=== PATIENT | male | born 1985 | race Caucasian/White ===

== ENCOUNTER 2023-04-22 19:08 | Emergency (ER) | payer BC ==
[~2023-04-22] VITALS: Ht 165.1 cm; Wt 102.0 kg
[2023-04-22 19:12] VITALS: BP 136/101; RESP 16; TEMP 98.9; O2SAT 97
[2023-04-22 19:13] VITALS: PULSE 104
[2023-04-22 20:22] LABS: HEMATOCRIT. 43.9 % (42.0-52.0); HEMOGLOBIN. 15.1 g/dL (14.0-18.0); MEAN CORPUSCULAR HEMOGLOBIN 31.1 pg (28.0-32.0); MEAN CORPUSCULAR HGB CONC 34.4 g/dL (31.0-37.0); MEAN CORPUSCULAR VOLUME 90.3 fL (80.0-94.0); MEAN PLATELET VOLUME 8.1 fl (7.4-10.4); PLATELET 174 x1000/uL (130-400); RED BLOOD CELL COUNT 4.86 mill/uL (4.7-6.1); RED CELL DISTRIBUTION WIDTH 13.6 % (11.6-14.6); WHITE BLOOD COUNT 10.3 x1000/uL (4.5-11.0)
[2023-04-22 20:23] LABS: DIFFERENTIAL COMMENT 1
[2023-04-22 20:36] LABS: PLATELET ESTIMATE NORMAL
[2023-04-22 20:45] LABS: CHLORIDE 100 mEq/L (98-107); INDEX HEMOLYSI 1 (1-3); INDEX ICTERIC 1 (1-4); INDEX LIPEMIC 1 (1-3); POTASSIUM 3.2 mEq/L (3.5-5.1); SODIUM 135 mEq/L (136-145)
[2023-04-22 20:47] LABS: CLARITY URINE CLEAR (CLEAR); COLOR URINE DARK YELLOW (YELLOW); GLUCOSE URINE NEGATIVE (NEGATIVE); KETONES URINE 1+ (NEGATIVE); LEUKOCYTE ESTERASE URINE TRACE (NEGATIVE); NITRITE URINE NEGATIVE (NEGATIVE); OCCULT BLOOD URINE 2+ (NEGATIVE); PROTEIN URINE 3+ (NEGATIVE); SPECIFIC GRAVITY URINE 1.044 (1.005-1.030)
[2023-04-22 20:49] LABS: WBC URINE 0-2 /hpf (0-2); YEAST URINE NONE SEEN
[2023-04-22 20:55] LABS: ALANINE AMINOTRANSFERASE 88 IU/L (13-61); ALBUMIN 3.8 g/dL (3.4-5.0); ASPARTATE AMINOTRANSFERASE 57 IU/L (15-37); BILIRUBIN TOTAL 1.3 mg/dL (0.1-1.0); CALCIUM 8.9 mg/dL (8.5-10.1); CARBON DIOXIDE 25 mEq/L (21-32); CREATININE 0.8 mg/dL (0.6-1.3); GLUCOSE 119 mg/dL (70-105); PROTEIN TOTAL 8.6 g/dL (6.0-8.3); UREA NITROGEN BLOOD 8 mg/dL (7-21)
[2023-04-22] MEDS ORDERED: OXYCODONE HCL/ACETAMINOPHEN 5/325MG TABLET PO NR (21:00)
[2023-04-22] MEDS ORDERED: DOXYCYCLINE HYCLATE 100MG CAPSULE PO NR (21:00)
[2023-04-22] MEDS ORDERED: POTASSIUM CHLORIDE 20MEQ/PACKET PO NR (21:00)
[2023-04-22] MEDS ORDERED: CEFTRIAXONE SODIUM 250 MG/VIAL IM NR (21:00)
[2023-04-22 21:09] LABS: SQUAMOUS EPITHELIAL CELL URINE RARE /lpf (RARE/1+)
[2023-04-22 21:10] LABS: BACTERIA URINE 2+
[2023-04-22] MEDS ORDERED: DOXY-456 MT (21:13)
== END 2023-04-23 01:03 | disposition home or self-care (01) ==
LOC: ER 19:08
DX: N41.9 Inflammatory disease of prostate, unspecified (principal)
CPT/HCPCS: 36415; 80053; 81003; 85025; 99283